=== PATIENT | female | born 1980 | race African-American/Black ===

== ENCOUNTER 2016-08-25 16:10 | Emergency (ER) | payer OTHER ==
--- NOTE | ~2016-08-25 | CT114 ---
[facility] A Service of [facility] RADIOLOGY TEXT RESULTS PATIENT: MARCELLA GILLIAM LOCATION: [facility] : [birth year] UNIT #: [id number] AGE: [address]: Tung Mahmood MD SEX: F ORDER DR: [id number] [facility] [address] [place], [place] [address] [id number] E MR#: [id number] Acc #: [id number] NAME: MARCELLA GILLIAM : 1980 SEX: F STUDY DATE/TIME: 08/25/2016 17:06 UNIT: [facility] ROOM: STUDY DESCRIPTION: CT Soft Tissue Neck W Cont Attending Physician: Tung Mahmood M.D. Ordering Physician: Tung Mahmood M.D. Primary Care Physician: David Sofia Jr., A.P.R.N. MEDICAL IMAGING REPORT This report is preliminary unless electronic signature is present EXAM CT neck with IV contrast HISTORY Sore throat for [address] exam was performed with one or more of the following radiation dose reduction techniques: automatic exposure control, adjustment of mA and/or kV according to patient size, and iterative reconstruction. FINDINGS CT neck with IV contrast demonstrates prominent adenoids, which could be secondary to inflammation or hyperplasia, causing narrowing of the nasopharynx. Consider correlation to physical exam findings. No adenopathy in the remainder of the neck. No abscess. No inflammatory stranding or abnormal fluid collection. The parotid and submandibular glands and the thyroid gland are unremarkable. IMPRESSION 1. Prominent adenoids cause narrowing of the posterior nasopharynx. This could be due to adenoid hyperplasia or inflammation. Consider correlation physical exam findings. No abscess. No adenopathy in the remainder of the neck. 2. No abnormal soft tissue enhancement. The remainder the study is unremarkable. Dictated by... James Carballo M.D. THIS IS AN ELECTRONICALLY VERIFIED REPORT [facility] A Service of [facility] RADIOLOGY TEXT RESULTS PATIENT: MARCELLA GILLIAM LOCATION: [facility] #: [id number] : [birth year] UNIT #: [id number] AGE: [address]: Tung Mahmood MD SEX: F ORDER DR: James Carballo M.D. at 08/26/2016 2:28 PM VAHID/parvin TD: 08/25/2016 22:56 JOB #: [id number] MEDICAL IMAGING REPORT COPY
--- NOTE | ~2016-08-25 | CR72 ---
[facility] A Service of [facility] RADIOLOGY TEXT RESULTS PATIENT: MARCELLA GILLIAM LOCATION: [facility] : 80 UNIT #: [id number] AGE: [address]: Tung Mahmood MD SEX: F ORDER DR: [id number] [facility] [address] [place], [place] [address] [id number] E MR#: [id number] Acc #: [id number] NAME: MARCELLA GILLIAM : 1980 SEX: F STUDY DATE/TIME: 08/25/2016 16:10 UNIT: [facility] ROOM: STUDY DESCRIPTION: CR Chest Single View Portable Attending Physician: Tung Mahmood M.D. Ordering Physician: Tung Mahmood M.D. Primary Care Physician: David oSfia Jr., A.P.R.N. MEDICAL IMAGING REPORT This report is preliminary unless electronic signature is present EXAM Portable chest x-ray, 08/25/2016 HISTORY Cough for 2 months. Chest tightness, cough, congestion, vomiting and short of air. FINDINGS AP radiograph of the chest is presented. Comparison 07/23/2012. Study is somewhat limited secondary to the patient's large body habitus. No acute-appearing bony abnormality. Mild cardiac enlargement. This appears slightly more pronounced than on the prior examination. The lungs are moderately well inflated. There is no indication of acute infectious or inflammatory disease, pleural effusion or pneumothorax. No suspicious nodule. Dictated by... Frank Sands M.D. THIS IS AN ELECTRONICALLY VERIFIED REPORT Frank Sands M.D. at 08/27/2016 10:50 PM TARYN/edu TD: 08/25/2016 22:39 JOB #: [id number] MEDICAL IMAGING REPORT COPY
[2016-08-25 15:56] LABS: URINE SOURCE CLEAN CATCH
[2016-08-25 16:02] LABS: BASOPHIL% 0.3 % (0-2.5); EOSINOPHIL# 0.1 X10e3 (0-0.7); EOSINOPHIL% 1.1 % (0.0-7.0); HEMOGLOBIN 11.5 gm/dL (12.0-16.0); LYMPHOCYTE# 3.3 X10e3 (1.0-3.5); LYMPHOCYTE% 37.2 % (17.0-45.0); MEAN CORPUSCULAR HEMOGLOBIN 24.2 PG (28-34); MEAN CORPUSCULAR HGB CONC 31.9 g/dL (30-36); MEAN PLATELET VOLUME 8.9 FL (6.5-11.5); MONOCYTE# 0.3 X10e3 (0-1.0); MONOCYTE% 3.9 % (3.0-12.0); NEUTROPHIL% 57.5 % (40-75); PLATELET COUNT 280 X10e3 (140-420); RED BLOOD COUNT 4.75 X10e (3.90-5.30); RED CELL DISTRIBUTION WIDTH 15.7 % (11.0-15.5); WHITE BLOOD COUNT 8.7 X10e3 (4.0-10.5)
[2016-08-25 16:04] LABS: DIFF IND NO
[~2016-08-25 16:10] MED LIST: ALBUTEROL17 GM INH; ALBUTEROL20 ml INH; EC-NAPROSYN500 MG PO; IRON1 TA1 PO; METFORMIN PO; NEURONTIN300 MG PO; NOVOLOG FL100 UNIT/1; NOVOLOG100 U/ML; PEN-VEE K PO; PERCOCET5/325 PO; PHENERGAN PO; PHENERGAN25 M1 PO; PREDNISONE PO; PROTONIX PO; TAMIFLU75 M1 PO; TOPAMAX PO; TOPAMAX50 MG PO; VICODIN 5/1 TAB 5/50 PO; VIT B12 PO; ZOFRANODT PO
[2016-08-25 16:22] LABS: URINE APPEARANCE CLEAR; URINE BILIRUBIN NEG (NEG); URINE BLOOD NEG (NEG); URINE COLOR YELLOW; URINE GLUCOSE NEG (NEG); URINE KETONE NEG (NEG); URINE LEUKOCYTE ESTERASE NEG (NEG); URINE NITRATE NEG (NEG); URINE PH 8.5 (5-8); URINE PROTEIN NEG (NEG); URINE SPECIFIC GRAVITY 1.018 (1.003-1.035); URINE UROBILINOGEN 0.2 MG/DL (NEG)
[2016-08-25 16:27] LABS: ALBUMIN SERUM 3.4 g/dL (3.5-5.0); ALKALINE PHOSPHATASE 108 U/L (32-92); ALT (SGPT) 12 U/L (10-40); AST (SGOT) 15 U/L (10-42); BILIRUBIN, DIRECT 0.1 mg/dL (0.0-0.2); BILIRUBIN,INDIRECT 0.4 mg/dL (0.0-0.9); BILIRUBIN,TOTAL 0.5 mg/dL (0.2-2.0); BLOOD UREA NITROGEN 8 mg/dL (9-23); BUN/CREATININE RATIO 13.33; CALCIUM SERUM 8.7 mg/dL (8.4-10.2); CARBON DIOXIDE 28 mmol/L (22-31); CHLORIDE 100 mmol/L (100-111); CREATININE SERUM 0.6 mg/dL (0.6-1.4); GLOM FILT RATE Estimated ABOVE60 mL/min (>60); GLUCOSE FASTING 165 mg/dL (70-110); LIPASE 20 U/L (22-51); POTASSIUM 3.7 mmol/L (3.5-5.1); PROTEIN TOTAL SERUM 7.9 g/dL (6.0-8.3); SODIUM 135 mmol/L (135-145)
[2016-08-25 16:31] LABS: CULTURE INDICATED? NO
[2016-09-26] MEDS ORDERED: LIPITOR PO (09:10)
[2016-09-26] MEDS ORDERED: GABAPENTIN300 MG PO (09:10)
[2016-09-26] MEDS ORDERED: VOLTAREN75 MG PO (09:11)
[2016-09-26] MEDS ORDERED: ALOGLIPTIN25 MG PO (09:12)
[2016-09-26] MEDS ORDERED: ZESTRIL2.5 M1 PO (09:12)
[2016-09-26] MEDS ORDERED: LANTUS SOLOSTAR3 ML SUBQ (09:13)
[2016-09-26] MEDS ORDERED: OMEPRAZOLE20 M2 PO (09:13)
[2016-09-26] MEDS ORDERED: REGLAN10 MG PO (09:15)
[2016-09-26] MEDS ORDERED: ALBUTEROL17 GM INH (09:15)
[2016-09-26] MEDS ORDERED: VITAMIN D50000 UNIT PO (09:16)
[2016-09-26] MEDS ORDERED: MONTELUKAST SOD10 MG PO (09:16)
[2016-09-26] MEDS ORDERED: PROMETHAZINE D118 ML PO (09:17)
[2016-09-26] MEDS ORDERED: TOPAMAX50 MG PO (09:28)
[2016-09-26] MEDS ORDERED: HYDROCODON-ACE1 EAC9 PO (09:28)
== END 2016-08-25 18:25 | disposition home or self-care (01) ==
LOC: CED 16:10
PROVIDERS: Emergency Medicine
DX: R11.2 Nausea with vomiting, unspecified (principal); J02.9 Acute pharyngitis, unspecified; K21.9 Gastro-esophageal reflux disease without esophagitis; E11.9 Type 2 diabetes mellitus without complications; J45.909 Unspecified asthma, uncomplicated; Z90.89 Acquired absence of other organs
CPT/HCPCS: 36415; 70491; 71010; 80048; 80076; 81003; 82947; 83690; 84703; 85025; 96361; 96374; 96375; 99284; C9113; J2765; Q9967

== ENCOUNTER → 2016-09-26 | Outpatient (CLI) | payer OTHER ==
[~2016-09-26] MED LIST changes: +ALOGLIPTIN25 MG PO; +GABAPENTIN300 MG PO; +HYDROCODON-ACE1 EAC9 PO; +LANTUS SOLOSTAR3 ML SUBQ; +LIPITOR PO; +MONTELUKAST SOD10 MG PO; +OMEPRAZOLE20 M2 PO; +PROMETHAZINE D118 ML PO; +REGLAN10 MG PO; +VITAMIN D50000 UNIT PO; +VOLTAREN75 MG PO; +ZESTRIL2.5 M1 PO
--- NOTE | ~2016-09-26 | CR63 ---
[facility] A Service of [facility] RADIOLOGY TEXT RESULTS PATIENT: MARCELLA GILLIAM LOCATION: [facility] : 80 UNIT #: [id number] AGE: [address]: Frank King MD SEX: F ORDER DR: [id number] [facility] [address] [place], [place] [address] [id number] O MR#: [id number] Acc #: [id number] NAME: MARCELLA GILLIAM : 1980 SEX: F STUDY DATE/TIME: 09/26/2016 8:13 UNIT: [facility] ROOM: STUDY DESCRIPTION: CR Chest 2 View Attending Physician: Frank King M.D. Referring Physician: Frank King M.D. Ordering Physician: Frank King M.D. Primary Care Physician: David Sofia Jr., A.P.R.N. MEDICAL IMAGING REPORT This report is preliminary unless electronic signature is present EXAM Chest, 09/26/2016. HISTORY 35-year-old woman; preop clearance. Laparoscopic adjustable gastric band placement with possible paraesophageal hernia repair. Morbid obesity. Short of air with activity. COMPARISON STUDIES 08/25/2016 FINDINGS 2-view chest demonstrates large body habitus. There is mild stable cardiac enlargement. Hilar structures are preserved. Lungs are clear. Costophrenic angles are preserved. IMPRESSION Stable chest. Mild cardiomegaly only. No acute findings. Morbid obesity. Dictated by... Darrin Rene M.D. THIS IS AN ELECTRONICALLY VERIFIED REPORT Darrin Rene M.D. at 09/26/2016 1:45 PM CATHRYN/emile TD: 09/26/2016 11:57 JOB #: [id number] MEDICAL IMAGING REPORT [facility] A Service of [facility] RADIOLOGY TEXT RESULTS PATIENT: MARCELLA GILLIAM LOCATION: [facility] : 80 UNIT #: [id number] AGE: [address]: Frank King MD SEX: F ORDER DR: GRECIA
--- NOTE | ~2016-09-26 | CR97 ---
[facility] A Service of [facility] RADIOLOGY TEXT RESULTS PATIENT: MARCELLA GILLIAM LOCATION: [facility] : 80 UNIT #: [id number] AGE: [address]: Frank King MD SEX: F ORDER DR: [id number] [facility] [address] [place], [place] [address] [id number] O MR#: [id number] Acc #: [id number] NAME: MARCELLA GILLIAM : 1980 SEX: F STUDY DATE/TIME: 09/26/2016 8:40 UNIT: [facility] ROOM: STUDY DESCRIPTION: CR Esophagram Attending Physician: Frank King M.D. Referring Physician: Frank King M.D. Ordering Physician: Frank King M.D. Primary Care Physician: David Sofia Jr., A.P.R.N. MEDICAL IMAGING REPORT This report is preliminary unless electronic signature is present EXAM Esophagram. HISTORY Preoperative evaluation for lap-band surgery TECHNIQUE Multiple views of the esophagus were obtained prone and upright with thin and thick barium. A total of 12 overhead spot films were obtained with fluoroscopy time 0.4 minutes. FINDINGS Esophagus is normal in caliber. There is no evidence of stricture, mass or hiatal hernia. No diverticula are seen. IMPRESSION Normal. Dictated by... Kye Jose M.D. THIS IS AN ELECTRONICALLY VERIFIED REPORT Kye Jose M.D. at 09/26/2016 4:55 PM LAWSON/collin TD: 09/26/2016 13:33 JOB #: [id number] MEDICAL IMAGING REPORT COPY
--- NOTE | ~2016-09-26 | EKG ---
PATIENT: MARCELLA GILLIAM UNIT #: [id number] Ventricular Rate: 97 BPM Atrial Rate: 97 BPM P-R Interval: 172 ms QRS Duration: 78 ms Q-T Interval: 368 ms QTC Calculation(Bezet): 467 ms P [place]: 31 degrees Calculated R [place]: 72 degrees Calculated T [place]: 31 degrees Diagnosis Line: Normal sinus rhythm Diagnosis Line: Normal ECG Diagnosis Line: No previous ECGs available Diagnosis Line: Confirmed by HINA CUMMINGS MD ([id number]) on 09/29/2016 Diagnosis Line: 7:20:38 AM INTERPRETING MD: EMILIANO ROOT
[2016-09-26 10:10] LABS: MEAN CELL VOLUME 75.2 FL (83-96); MEAN CORPUSCULAR HEMOGLOBIN 23.7 PG (28-34); MEAN CORPUSCULAR HGB CONC 31.5 g/dL (30-36); MEAN PLATELET VOLUME 8.5 FL (6.5-11.5); RED BLOOD COUNT 4.65 X10e (3.90-5.30); RED CELL DISTRIBUTION WIDTH 16.2 % (11.0-15.5); WHITE BLOOD COUNT 9.5 X10e3 (4.0-10.5)
[2016-09-26 10:46] LABS: ALBUMIN SERUM 2.9 g/dL (3.5-5.0); ALKALINE PHOSPHATASE 94 U/L (32-92); ALT (SGPT) 12 U/L (10-40); AST (SGOT) 14 U/L (10-42); BILIRUBIN,TOTAL 0.3 mg/dL (0.2-2.0); BLOOD UREA NITROGEN 11 mg/dL (9-23); BUN/CREATININE RATIO 18.33; CALCIUM SERUM 8.7 mg/dL (8.4-10.2); CARBON DIOXIDE 29 mmol/L (22-31); CHLORIDE 102 mmol/L (100-111); CHOLESTEROL 136 mg/dL (0-200); CREATININE SERUM 0.6 mg/dL (0.6-1.4); GLOM FILT RATE Estimated ABOVE60 mL/min (>60); GLUCOSE FASTING 133 mg/dL (70-110); HDL CHOLESTEROL 41 mg/dL (35-95); LDL CHOLESTEROL 80 mg/dL (-130); LDL/HDL RATIO 2 RATIO (0-4); POTASSIUM 4.2 mmol/L (3.5-5.1); SODIUM 138 mmol/L (135-145); TRIGLYCERIDES 77 mg/dL (10-160)
== END | disposition home or self-care (01) ==
LOC: CRAD 08:04
PROVIDERS: Surgery
DX: Z01.818 Encounter for other preprocedural examination (principal); E66.01 Morbid (severe) obesity due to excess calories; I51.7 Cardiomegaly
CPT/HCPCS: 36415; 71020; 74220; 80053; 80061; 84443; 85027; 93005

== ENCOUNTER → 2016-10-08 | Day surgery (SDC) | payer OTHER ==
--- NOTE | ~2016-10-08 | OR ---
Unit #: [id number] #: [id number] Patient: MARCELLA GILLIAM [id number] [address] [id number] O MR#: [id number] NAME: MARCELLA GILLIAM ROOM: Date of Procedure: 10/08/2016 Admission Date: 10/08/2016 Surgeon: Frank King M.D. : 1980 Attending Physician: Frnak King M.D. Referring Physician: Frank King M.D. Primary Care Physician: David Sofia Jr., A.P.R.N. OPERATIVE REPORT PREOPERATIVE DIAGNOSIS Chronic morbid obesity, BMI of 61. POSTOPERATIVE DIAGNOSES 1. Chronic morbid obesity, BMI of 61. 2. Paraesophageal hiatal hernia. PROCEDURES PERFORMED 1. Laparoscopic adjustable gastric band. 2. Laparoscopic paraesophageal hernia repair. 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 ANESTHESIA General endotracheal anesthesia. ESTIMATED BLOOD LOSS Minimal. IV FLUIDS 800 crystalloid. COMPLICATIONS None. INDICATIONS FOR PROCEDURE The patient is a 35-year-old with chronic morbid obesity. DESCRIPTION OF PROCEDURE The patient was taken to the operating room and placed in supine position. General anesthesia was induced. The abdomen was prepped and draped. A 3-cm incision was then made left of the midline. A 10-mm Visiport was then placed intraabdominal under direct vision. The abdomen was insufflated to 15 mmHg with CO2. The patient was then placed in a steep reversed Trendelenburg. General inspection of the abdomen revealed what appeared to be a paraesophageal hernia. This was identified with a defect at the diaphragm using anterior palpation with the instrument. We then made a small incision in the subxiphoid region. A Tamy liver retractor was then placed intraabdominal and used to retract the left lobe of the liver upward to further expose the paraesophageal hernia and GE junction. I then placed a 5-mm port in the right upper quadrant, a 10-mm Unit #: [id number] #: [id number] Patient: MARCELLA GILLIAM port in the left upper quadrant, and another 5-mm port in the left lower quadrant. The stomach was retracted medial and downward. Upon retracting the stomach, we took down the paraesophageal ligament, exposing the right and left kelsey at the paraesophageal hernia. Any hernia sac was reduced. We then repaired the paraesophageal hernia using interrupted #0 Ethibond sutures in a xjbzql-ol-gexyx type fashion. This formed a snug repair to the anterior esophagus. We then retracted the stomach medially and further exposed the angle of His using Bovie electrocautery. The stomach was then retracted laterally. We then took down the hepatogastric ligament with Bovie electrocautery. This exposed the right kelsey. Using blunt dissection, I created a retrogastric tunnel from this point to the angle of His. The band was then placed intraabdominal through the 10-mm port site. This was then brought through the retrogastric tunnel in a pars flaccida technique. The band was then closed anteriorly to form a 20-mL to 25-mL anterior gastric pouch. The fundus was then secured to the anterior pouch to prevent movement around the stomach using two interrupted #0 Ethibond sutures. A third suture was then used as a gathering stitch from the lesser curve to the anterior stomach, gathering and imbricating the remaining fundus of the stomach. The tubing was then brought out through the midline 10-mm port site. All ports and the Tamy liver retractor were removed under direct vision with no evidence of abdominal hemorrhage. A polypropylene mesh was then secured to the posterior face of the laparoscopic band port. This was secured using #0 Ethibond suture. This was then cut to shape. The port was then connected to the tubing and placed into a subcutaneous pocket just anterior to the rectus sheath. Its position was then confirmed. All tubing was then placed intraabdominal. The wounds were then closed with interrupted 4-0 Vicryl. The patient tolerated the procedure well and was sent to the recovery room in good condition. Dictated by... Gloria Cordova/sagar TD: 10/09/2016 01:29 JOB #: [id number] OPERATIVE REPORT Page 1 of 1 X Frank King MD X PROCEDURE OPERATIVE NOTE
--- NOTE | ~2016-10-08 | CR7 ---
[facility] A Service of [facility] RADIOLOGY TEXT RESULTS PATIENT: MARCELLA GILLIAM LOCATION: [facility] : 80 UNIT #: [id number] AGE: [address]: Frank King MD SEX: F ORDER DR: [id number] [facility] [address] [place], [place] [address] [id number] O MR#: [id number] Acc #: [id number] NAME: MARCELLA GILLIAM : 1980 SEX: F STUDY DATE/TIME: 10/08/2016 9:37 UNIT: [facility] ROOM: STUDY DESCRIPTION: CR Abdomen Single AP View Attending Physician: Frank King M.D. Referring Physician: Frank King M.D. Ordering Physician: Frank King M.D. Primary Care Physician: David Sofia Jr., A.P.R.N. MEDICAL IMAGING REPORT This report is preliminary unless electronic signature is present EXAM Supine abdomen one-view COMPARISON None HISTORY Status post Lap-Band procedure. FINDINGS Single AP view of the abdomen shows a Lap-Band device in position. The band makes an angle of about 59 degrees relative to the spine. Dictated by... Jr Thomas M.D. THIS IS AN ELECTRONICALLY VERIFIED REPORT Jr Thomas M.D. at 10/10/2016 5:00 PM OMAYRA/gladis TD: 10/08/2016 10:56 JOB #: [id number] MEDICAL IMAGING REPORT Page 1 of 1 COPY
== END | disposition home or self-care (01) ==
LOC: CSUR 05:55
DX: E66.01 Morbid (severe) obesity due to excess calories (principal); K44.9 Diaphragmatic hernia without obstruction or gangrene; I10 Essential (primary) hypertension; E11.9 Type 2 diabetes mellitus without complications; E78.5 Hyperlipidemia, unspecified; J45.909 Unspecified asthma, uncomplicated; K21.9 Gastro-esophageal reflux disease without esophagitis; M19.90 Unspecified osteoarthritis, unspecified site; Z68.44 Body mass index [BMI] 60.0-69.9, adult; Z88.1 Allergy status to other antibiotic agents; Z79.899 Other long term (current) drug therapy; Z90.89 Acquired absence of other organs; Z98.51 Tubal ligation status; Z98.890 Other specified postprocedural states
CPT/HCPCS: 74000; 82947; 84703; C1781; J0171; J0330; J1650; J1885; J2250; J2405; J2710; J3010; J3370

== ENCOUNTER 2016-10-13 12:15 | Emergency (ER) | payer OTHER ==
--- NOTE | ~2016-10-13 | CT16 ---
[facility] A Service of [facility] RADIOLOGY TEXT RESULTS PATIENT: MARCELLA GILLIAM LOCATION: [facility] : 80 UNIT #: [id number] AGE: [address]: Pb Mathew MD SEX: F ORDER DR: [id number] [facility] [address] [place], [place] [address] [id number] E MR#: [id number] Acc #: [id number] NAME: MARCELLA GILLIAM : 1980 SEX: F STUDY DATE/TIME: 10/13/2016 14:05 UNIT: [facility] ROOM: STUDY DESCRIPTION: CT Angio Chest for PE Attending Physician: Pb Mathew M.D. Ordering Physician: Senait Martin M.D. Primary Care Physician: David Sofia Jr., A.P.R.N. MEDICAL IMAGING REPORT This report is preliminary unless electronic signature is present EXAM CT of the chest with contrast INDICATIONS A 35-year female with asthma and sore throat for [address] chest performed following administration of IV contrast. Pulmonary embolism protocol. Coronal and sagittal reformatted images were obtained. This CT exam was performed with one or more of the following radiation dose reduction techniques: automatic exposure control, adjustment of mA and/or kV according to patient size, and iterative reconstruction. FINDINGS There is no evidence of pulmonary embolism. There is no pleural effusion or lymphadenopathy. There is a tiny ground-glass nodule in the left lower lobe on image 85. This is probably infectious or inflammatory. Remainder of the lungs clear. Limited imaging of the upper abdomen demonstrates a lap-band. The bone windows are unremarkable. IMPRESSION 1. No evidence of pulmonary embolism. 2. Tiny ground-glass nodule left lower lobe. 3. Remainder of the chest is unremarkable Dictated by... Saad Mitchell M.D. THIS IS AN ELECTRONICALLY VERIFIED REPORT Saad Mitchell M.D. at 10/13/2016 4:53 PM [facility] A Service of [facility] RADIOLOGY TEXT RESULTS PATIENT: MARCELLA GILLIAM LOCATION: [facility] : [birth year] UNIT #: [id number] AGE: [address]: Pb Mathew MD SEX: F ORDER DR: Marcelino TD: 10/13/2016 16:37 JOB #: [id number] MEDICAL IMAGING REPORT Page 1 of 1 COPY
--- NOTE | ~2016-10-13 | EKG ---
PATIENT: MARCELLA GILLIAM UNIT #: [id number] Ventricular Rate: 102 BPM Atrial Rate: 102 BPM P-R Interval: 154 ms QRS Duration: 72 ms Q-T Interval: 348 ms QTC Calculation(Bezet): 453 ms P [place]: 24 degrees Calculated R [place]: 51 degrees Calculated T [place]: -3 degrees Diagnosis Line: Sinus tachycardia Diagnosis Line: Normal ECG Diagnosis Line: When compared with ECG of 26-SEP-2016 08:58, Diagnosis Line: No significant change was found Diagnosis Line: Confirmed by MARCO BOWERS MD ([id number]) on 10/14/2016 Diagnosis Line: 11:16:26 PM INTERPRETING MD: ELISSA ROOT
[2016-10-13 12:00] LABS: POC - CKMB <1.0 ng/mL (0.0-7.9); POC - TROPONIN <0.05 ng/mL (<=0.05)
[2016-10-13 12:31] LABS: BASOPHIL% 0.3 % (0-2.5); EOSINOPHIL# 0.1 X10e3 (0-0.7); EOSINOPHIL% 1.3 % (0.0-7.0); HEMATOCRIT 37.1 % (35.0-45.0); HEMOGLOBIN 11.7 gm/dL (12.0-16.0); LYMPHOCYTE# 3.3 X10e3 (1.0-3.5); LYMPHOCYTE% 34.8 % (17.0-45.0); MEAN CELL VOLUME 75.4 FL (83-96); MEAN CORPUSCULAR HEMOGLOBIN 23.8 PG (28-34); MEAN CORPUSCULAR HGB CONC 31.5 g/dL (30-36); MEAN PLATELET VOLUME 8.9 FL (6.5-11.5); MONOCYTE# 0.5 X10e3 (0-1.0); MONOCYTE% 5.3 % (3.0-12.0); NEUTROPHIL# 5.6 X10e3 (1.5-7.1); NEUTROPHIL% 58.3 % (40-75); PLATELET COUNT 300 X10e3 (140-420); RED BLOOD COUNT 4.92 X10e (3.90-5.30); RED CELL DISTRIBUTION WIDTH 16.6 % (11.0-15.5); WHITE BLOOD COUNT 9.6 X10e3 (4.0-10.5)
[2016-10-13 12:42] LABS: INFLUENZA A NEG (NEG); INFLUENZA B NEG (NEG)
[2016-10-13 12:45] LABS: DIFF IND NO
[2016-10-13 13:11] LABS: ALBUMIN SERUM 3.3 g/dL (3.5-5.0); ALKALINE PHOSPHATASE 98 U/L (32-92); ALT (SGPT) 12 U/L (10-40); AST (SGOT) 13 U/L (10-42); BILIRUBIN,TOTAL 0.5 mg/dL (0.2-2.0); BLOOD UREA NITROGEN 6 mg/dL (9-23); BUN/CREATININE RATIO 8.57; CALCIUM SERUM 8.7 mg/dL (8.4-10.2); CARBON DIOXIDE 25 mmol/L (22-31); CHLORIDE 103 mmol/L (100-111); CREATININE SERUM 0.7 mg/dL (0.6-1.4); GLOM FILT RATE Estimated 130.1 mL/min (>60); GLUCOSE FASTING 153 mg/dL (70-110); POTASSIUM 3.8 mmol/L (3.5-5.1); SODIUM 137 mmol/L (135-145)
[2016-10-13 13:19] LABS: BILIRUBIN, DIRECT <0.1 mg/dL (0.0-0.2); BILIRUBIN,INDIRECT 0.4 mg/dL (0.0-0.9)
[2016-10-13 13:24] LABS: POC - CKMB 1.3 ng/mL (0.0-7.9); POC - TROPONIN <0.05 ng/mL (<=0.05)
== END 2016-10-13 15:08 | disposition home or self-care (01) ==
LOC: CED 12:15
PROVIDERS: Emergency Medicine
DX: J45.909 Unspecified asthma, uncomplicated (principal); E11.9 Type 2 diabetes mellitus without complications; Z88.0 Allergy status to penicillin; Z79.899 Other long term (current) drug therapy
CPT/HCPCS: 36415; 71275; 80048; 80076; 82553; 84484; 85025; 87804; 93005; 94640; 96374; 99284; J2930; Q9967